=== PATIENT | male | born 1955 | race Caucasian/White ===

== ENCOUNTER → 2017-12-10 | Outpatient (CLI) | payer OTHER ==
--- NOTE | ~2017-12-10 | EKG ---
[place], [place] ELECTROCARDIOGRAM REPORT NAME: FLORIAN STEVENS UNIT #: [id number] ROOM: DOCTOR: EVERETT CHANG MD BIRTHDATE: [birth year] DOS: 12/10/2017 EKG REPORT TIME: 10:53:24. RATE AND RHYTHM: Sinus bradycardia at 59 beats per minute. FL interval 163 milliseconds, QRS duration 91 milliseconds, corrected QT interval 480 milliseconds, QRS axis 33. IMPRESSION: 1. Normal sinus rhythm with mild sinus bradycardia. 2. Minimal ST elevation in anterior leads. No old EKG to compare with. This might be his baseline. The patient is not having any symptoms. 3. Otherwise normal EKG. EVERETT CHANG MD CM:EKGRPT:ELECTROCARDIOGRAM REPORT [id number] EVERETT CHANG MD
== END | disposition home or self-care (01) ==
LOC: RESCLI 00:29
DX: R03.0 Elevated blood-pressure reading, without diagnosis of hypertension (principal); M25.551 Pain in right hip; M25.511 Pain in right shoulder; R00.1 Bradycardia, unspecified; Z76.89 Persons encountering health services in other specified circumstances

== ENCOUNTER → 2017-12-16 | Outpatient (CLI) | payer OTHER ==
[2017-12-16 10:11] LABS: BASO % 0.4 % (0.0-1.0); EOS # 0.1 10*3/uL (0.0-0.4); HEMOGLOBIN 15.4 g/dl (14.0-18.0); LYMPH # 2.1 10*3/uL (1.3-4.4); LYMPH % 31.3 % (27.0-41.0); MEAN CELL VOLUME 95.7 fl (80.0-94.0); MEAN CORPUSCULAR HGB 31.4 pg (27.0-31.0); MEAN CORPUSCULAR HGB CONC 32.8 g/dl (33.0-37.0); MEAN PLATELET VOLUME 11.2 fl (9.6-12.3); MONO # 0.7 10*3/uL (0.1-1.0); MONO % 9.7 % (3.0-9.0); NEUT # 3.9 10*3/uL (2.3-7.9); NEUT % 56.9 % (47.0-73.0); PLATELET COUNT AUTOMATED 253 10*3/uL (130-400); RED BLOOD COUNT 4.91 10*6/uL (4.50-5.90); RED CELL DISTRI WIDTH 12.3 % (0-14.5); WHITE BLOOD COUNT 6.8 10*3/uL (4.8-10.8)
[2017-12-16 10:39] LABS: ALBUMIN 3.9 gm/dl (3.1-4.5); BUN 13 mg/dl (7-24); CHLORIDE 103 mmol/L (98-107); CHOLESTEROL 290 mg/dL (<200); CREATININE 0.82 mg/dL (0.70-1.30); SGOT/AST 19 IU/L (3-35); SGPT/ALT 30 U/L (12-78); SODIUM 138 mmol/L (136-145); TRIGLYCERIDES 244 mg/dl (<150); VLDL CHOLESTEROL 49 mg/dL (6-40)
[2017-12-16 10:48] LABS: ALKALINE PHOSPHATASE 82 U/L (45-117); HDL CHOLESTEROL 44 mg/dl (40-60); LDL CHOLESTEROL 197 mg/dL (9-159); TOTAL PROTEIN 7.5 gm/dL (6.4-8.2)
== END | disposition home or self-care (01) ==
LOC: LAB 09:16
PROVIDERS: Internal Medicine
DX: Z76.89 Persons encountering health services in other specified circumstances (principal); Z12.5 Encounter for screening for malignant neoplasm of prostate; M25.551 Pain in right hip; R79.89 Other specified abnormal findings of blood chemistry

== ENCOUNTER → 2017-12-23 | Outpatient (CLI) | payer OTHER | END | disposition home or self-care (01) | LOC: ORTHO 11:24 | DX: M19.011 Primary osteoarthritis, right shoulder (principal) ==

== ENCOUNTER → 2018-01-06 | Outpatient (CLI) | payer OTHER | END | disposition home or self-care (01) | LOC: RESCLI 01:51 | DX: I10 Essential (primary) hypertension (principal); M25.511 Pain in right shoulder; E78.2 Mixed hyperlipidemia; M25.512 Pain in left shoulder ==

== ENCOUNTER → 2018-02-03 | Outpatient (CLI) | payer OTHER | END | disposition home or self-care (01) | LOC: RESCLI 07:16 | DX: I10 Essential (primary) hypertension (principal); E78.5 Hyperlipidemia, unspecified; N50.9 Disorder of male genital organs, unspecified; R22.9 Localized swelling, mass and lump, unspecified ==

== ENCOUNTER → 2018-02-09 | Outpatient (CLI) | payer OTHER | END | disposition home or self-care (01) | LOC: RESCLI 02:18 | DX: I10 Essential (primary) hypertension (principal); E78.2 Mixed hyperlipidemia; E55.9 Vitamin D deficiency, unspecified; N50.9 Disorder of male genital organs, unspecified; F12.90 Cannabis use, unspecified, uncomplicated; F10.10 Alcohol abuse, uncomplicated; R73.03 Prediabetes ==

== ENCOUNTER → 2018-04-07 | Outpatient (CLI) | payer OTHER | END | disposition home or self-care (01) | LOC: RESCLI 03:40 | DX: H61.21 Impacted cerumen, right ear (principal); I10 Essential (primary) hypertension; E78.2 Mixed hyperlipidemia ==